=== PATIENT | female | born 1975 | race Two or more races ===

== ENCOUNTER 2019-11-13 07:30 | Inpatient (IN) | payer OTHER ==
[~2019-11-13] VITALS: Ht 152.4 cm; Wt 58.1 kg
[2019-11-23] MEDS ORDERED: CODE1TAB37 PO (11:39)
[2019-11-23] MEDS ORDERED: INTEGRA PLUS C1 EACH PO (11:39)
[2019-11-23] MEDS ORDERED: MOTRIN IB200 MG PO (11:40)
== END 2019-11-23 11:43 | disposition home or self-care (01) | DRG 743 ==
LOC: EDSTATUS 07:30 → ADM 07:30 → O/R 11-20 06:00 → SURG-SUITE 11-20 06:00 → OB/GYN 11-20 07:30 → SURG-SUITE 11-20 14:33
PROVIDERS: ADMIT Obstetrics & Gynecology; ATTEND Obstetrics & Gynecology
PROC: 0USG0ZZ Reposition Vagina, Open Approach (ICD-10-PCS; 2019-11-20)
PROC: 0TJB8ZZ Inspection of Bladder, Via Natural or Artificial Opening Endoscopic (ICD-10-PCS; 2019-11-20)
PROC: 0UT90ZZ Resection of Uterus, Open Approach (ICD-10-PCS; principal; 2019-11-20 08:45)
DX: D25.1 Intramural leiomyoma of uterus (principal); N72 Inflammatory disease of cervix uteri; Z53.31 Laparoscopic surgical procedure converted to open procedure; N81.10 Cystocele, unspecified

== ENCOUNTER 2020-09-02 07:36 | Emergency (ER) | payer OTHER ==
[~2020-09-02] VITALS: Ht 157.5 cm; Wt 58.1 kg
[~2020-09-02 07:36] MED LIST: CODE1TAB37 PO; INTEGRA PLUS C1 EACH PO; MOTRIN IB200 MG PO
== END 2020-09-02 16:11 | disposition home or self-care (01) ==
LOC: ER 07:36
DX: K52.89 Other specified noninfective gastroenteritis and colitis (principal)